=== PATIENT | female | born 1945 | race Caucasian/White ===

== ENCOUNTER → 2020-09-18 | Outpatient (CLI) | payer BC | LOC: KOH-I 10:45 | DX: R06.2 Wheezing (principal); R91.8 Other nonspecific abnormal finding of lung field | CPT/HCPCS: 71046 ==

== ENCOUNTER → 2020-10-10 | Outpatient (CLI) | payer BC | LOC: HEART 5 08:15 | DX: R06.2 Wheezing (principal); R93.89 Abnormal findings on diagnostic imaging of other specified body structures | CPT/HCPCS: 94010 ==